=== PATIENT | female | born 1990 | race Caucasian/White ===

== ENCOUNTER 2019-01-09 09:33 | Outpatient (REF) | payer MEDICAID, SELFPAY ==
--- NOTE | 2019-01-09 08:30 | PAPFT_PTH ---
PATIENT: ESSENCE BRYANT LOC: [facility] U#:[id number] AGE/SX: 28/F ROOM: RE01/09/[address]: Teagan Ponce : 1990 BED: DIS: 01/09/2019 SPEC #: [id number] RECD: 01/10/19 13:04 STATUS: CARL REJeremy #: [id number] SOHA: 01/09/19 08:[address]: Teagan Ponce DEPT: [facility] Cytology RECD BY: Anastasiya Oakley ENTERED: 01/10/19 13:04 SP TYPE: PAPFT OTHR DR: Abdiaziz Barker Tissues: 1 - CX/ENDOCX FOR PAP SMEARS Procedures: PAP THIN PREP/[facility] Screening Comments: [id number] (CHLAMYDIA/GC)
[2019-01-09 13:24] LABS: HCT 41.1 % (36.0-46.0); HGB 13.3 g/dL (12.0-15.5); Mean Corp. HGB Concentration 32.4 g/dL (32.0-36.0); Mean Corpuscular Hemoglobin 29.9 pg (27.0-33.0); Mean Corpuscular Volume 92.4 fL (80-95); Mean Platelet Volume 11.9 fL (8.0-11.0); Platelet Count 235 x1000/uL (130-400); RBC 4.45 m/cumm (4.00-5.20); RBC Distribution Width 13.5 % (11.7-14.6); White Blood Cell Count 2.86 k/cumm (4.4-10.8)
[2019-01-09 21:42] LABS: Total Iron Binding Capacity 450 ug/dL (250-450)
[2019-01-09 21:59] LABS: Ferritin 13 ng/mL (8-388); TSH (W/Ref FT4) 1.04 uIU/mL (0.358-3.74); Vitamin B12 348 pg/mL (193-986)
[2019-01-10 10:20] LABS: HIV-1/2 Ag & Ab Screen Negative (NEGAT)
[2019-01-10 14:31] LABS: Abs Immature Grans 0.01 k/cumm (0.0-0.09); Absolute Basophil Count 0.01 k/cumm (0.0-0.2); Absolute Eosinophil Count 0.09 k/cumm (0.0-0.7); Absolute Lymphocyte Count 0.92 k/cumm (1.2-3.4); Basophils % 0.3; Immature Grans % 0.3; Lymphocytes % 30.4; Monocytes % 13.2; Neutrophils % 52.8
[2019-01-10 16:07] LABS: Syphilis Total Ab w/Reflex Nonreactive (Nonreactive)
[2019-01-13 14:29] LABS: Chlamydia Result Negative; GC Result Negative; Specimen Description SEE COMMENTS
== END 2019-01-09 09:53 ==
LOC: NCHCN 09:33
PROVIDERS: PCP Internal Medicine; Visit Provider Nurse Practitioner Family
DX: R63.4 Abnormal weight loss (principal); N92.0 Excessive and frequent menstruation with regular cycle; Z11.4 Encounter for screening for human immunodeficiency virus [HIV]; Z11.3 Encounter for screening for infections with a predominantly sexual mode of transmission; Z12.4 Encounter for screening for malignant neoplasm of cervix; Z00.00 Encounter for general adult medical examination without abnormal findings
CPT/HCPCS: 85027; 87389; 87491; 87591; 88142; 82607; 82728; 83550; 84443; 85007; 86780

== ENCOUNTER 2019-04-29 10:30 | Outpatient (REF) | payer MEDICAID, SELFPAY ==
[2019-04-29 11:35] LABS: Absolute Basophil Count 0.01 k/cumm (0.0-0.2); Absolute Eosinophil Count 0.09 k/cumm (0.0-0.7); Absolute Lymphocyte Count 1.06 k/cumm (1.2-3.4); Absolute Monocyte Count 0.45 k/cumm (0.11-0.7); Absolute Neutrophil Count 1.76 k/cumm (1.2-6.7); Basophils % 0.3; Eosinophils % 2.7; HCT 39.8 % (36.0-46.0); HGB 12.8 g/dL (12.0-15.5); Lymphocytes % 31.5; Mean Corp. HGB Concentration 32.2 g/dL (32.0-36.0); Mean Corpuscular Hemoglobin 29.2 pg (27.0-33.0); Mean Corpuscular Volume 90.9 fL (80-95); Mean Platelet Volume 10.7 fL (8.0-11.0); Monocytes % 13.4; Neutrophils % 52.1; Platelet Count 243 x1000/uL (130-400); RBC 4.38 m/cumm (4.00-5.20); RBC Distribution Width 14.3 % (11.7-14.6); White Blood Cell Count 3.37 k/cumm (4.4-10.8)
== END 2019-04-29 10:50 ==
LOC: NCHCN 10:30
PROVIDERS: PCP Internal Medicine; Visit Provider Nurse Practitioner Family
DX: D72.819 Decreased white blood cell count, unspecified (principal)
CPT/HCPCS: 85025

== ENCOUNTER 2020-01-05 21:43 | Outpatient (REF) | payer MEDICAID, SELFPAY ==
[2020-01-05 21:11] LABS: Abs Immature Grans 0.01 k/cumm (0.0-0.09); Absolute Basophil Count 0.01 k/cumm (0.0-0.2); Absolute Eosinophil Count 0.12 k/cumm (0.0-0.7); Absolute Lymphocyte Count 1.54 k/cumm (1.2-3.4); Absolute Monocyte Count 0.47 k/cumm (0.11-0.7); Basophils % 0.2; Eosinophils % 2.5; HGB 13.6 g/dL (12.0-15.5); Immature Grans % 0.2 %; Lymphocytes % 31.8; Mean Corp. HGB Concentration 32.4 g/dL (32.0-36.0); Mean Corpuscular Hemoglobin 29.8 pg (27.0-33.0); Mean Corpuscular Volume 91.9 fL (80-95); Mean Platelet Volume 11.4 fL (8.0-11.0); Monocytes % 9.7; Neutrophils % 55.6; Platelet Count 291 x1000/uL (130-400); RBC 4.57 m/cumm (4.00-5.20); RBC Distribution Width 13.5 % (11.7-14.6); White Blood Cell Count 4.85 k/cumm (4.4-10.8)
== END 2020-01-05 22:03 ==
LOC: NCHCN 21:43
PROVIDERS: PCP Internal Medicine; Visit Provider Nurse Practitioner Family
DX: D72.819 Decreased white blood cell count, unspecified (principal); R00.2 Palpitations; F32.9 Major depressive disorder, single episode, unspecified
CPT/HCPCS: 85025

== ENCOUNTER 2020-07-01 22:27 | Outpatient (REF) | payer MEDICAID, SELFPAY ==
[2020-07-01 21:21] LABS: HGB 13.9 g/dL (11.2-15.7); MCH 30.1 pg (27.0-33.0); MCHC 32.3 % (32.0-36.0); MCV 93.1 fL (80-95); MPV 11.8 fL (8.0-11.0); Platelet Count 249 10^3/uL (130-400); RBC 4.62 10^6/uL (3.93-5.22); RDW-SD 44.7 fL; WBC 6.27 10^3/uL (4.4-10.8)
== END 2020-07-01 22:47 ==
LOC: NCHCN 22:27
PROVIDERS: PCP Internal Medicine; Visit Provider Nurse Practitioner Family
DX: R07.89 Other chest pain (principal); D72.819 Decreased white blood cell count, unspecified; N92.0 Excessive and frequent menstruation with regular cycle; R00.2 Palpitations
CPT/HCPCS: 85027